=== PATIENT | female | born 1970 | race Caucasian/White ===

== ENCOUNTER → 2016-05-20 | Outpatient (CLI) | payer BC | LOC: FIMAGING 12:37 | PROVIDERS: ATTEND Specialist | DX: N20.0 Calculus of kidney (principal) ==

== ENCOUNTER → 2016-06-06 | Outpatient (CLI) | payer BC | LOC: FIMAGING 10:19 | PROVIDERS: ATTEND Physician Assistant Medical | DX: N20.0 Calculus of kidney (principal) ==

== ENCOUNTER → 2016-06-13 | Outpatient (CLI) | payer BC | LOC: CIMAGING 07:21 | DX: Z12.31 Encounter for screening mammogram for malignant neoplasm of breast (principal) | CPT/HCPCS: G0202 ==

== ENCOUNTER → 2016-10-24 | Outpatient (CLI) | payer BC | LOC: CIMAGING 14:19 | PROVIDERS: ATTEND Family Medicine | DX: M17.12 Unilateral primary osteoarthritis, left knee (principal); D64.9 Anemia, unspecified; E55.9 Vitamin D deficiency, unspecified; E88.81 Metabolic syndrome and other insulin resistance | CPT/HCPCS: 73564-PO ==

== ENCOUNTER → 2017-06-19 | Outpatient (CLI) | payer OTHER | LOC: CIMAGING 10:15 | PROVIDERS: ATTEND Family Medicine | DX: Z12.31 Encounter for screening mammogram for malignant neoplasm of breast (principal) ==

== ENCOUNTER → 2018-02-20 | Outpatient (CLI) | payer OTHER | LOC: FIMAGING 18:08 | PROVIDERS: ATTEND Orthopaedic Surgery | DX: Z01.818 Encounter for other preprocedural examination (principal); S66.117A Strain of flexor muscle, fascia and tendon of left little finger at wrist and hand level, initial encounter ==

== ENCOUNTER → 2018-06-25 | Outpatient (CLI) | payer OTHER | LOC: CIMAGING 07:23 | PROVIDERS: ATTEND Family Medicine | DX: Z12.31 Encounter for screening mammogram for malignant neoplasm of breast (principal) ==

== ENCOUNTER 2018-08-10 05:56 | Day surgery (SDC) | payer OTHER ==
[2018-08-10] MEDS ORDERED: ceFAZolin 2 GM/DEXTROSE 100 ML IV ONE (06:06)
[2018-08-10] MEDS ORDERED: LR 1,000 ML IV ONE (06:07)
--- NOTE | 2018-08-10 06:43 | PDGENHP ---
History and Physical History and Physical: Full dictated 47 yo F presented to her PCP Dr. Steele with R abdominal pain on 05/25. She also noticed bulging with cough on the R side for approx. one year, thought it may have to do with her tubal ligation surgery in April of last year. She now reports it is visible while standing and walking, she has not tried reducing it herself but it disappears upon lying down. The region is still uncomfortable, and she denies issues with urination or bowl movements. Nothing makes the pain better or worse MHx significant for female fertility problems and Vitamin D deficiency per PCP She is getting Cortisone shots for her SI joint in approx. 6 weeks and thinks she may need surgery for this if the injections do not work. They will call our office to schedule the hernia repair after her injection. PMH reviewed General: Pleasant, well-nourished and well-groomed woman HENT: Normocephalic, no gross hearing deficits, mucous membranes moist, pupils equal and round, no scleral icterus Lungs: Clear to auscultation bilaterally, No increased work of breathing Cardiac: Regular rate, no peripheral edema Abdomen: Bowel sounds present, soft and non tender, R ventral hernia can be felt while standing, scars are apparent, lateral incision was re- opened for her tubal ligation reversal last April. Skin: Warm and dry. MSK: Normal gait and normal nails Psych: Mood and affect normal Ventral hernia The pt understands the need for the surgical repair and will call the office to schedule. Risks and benefits including but not limited to stroke, heart attack, , blood clots infection, bleeding, recurrence damage to bowel were discussed
--- NOTE | 2018-08-10 06:56 | PDHPUP ---
History & Physical Update H&P update statement: This history and physical update is based on an assessment of the patient which was completed after admission or registration (within 24 hours), but prior to the surgery/procedure. H&P update: H&P reviewed & patient examined, no change in patient's condition since H&P completed
[2018-08-10] MEDS ORDERED: MIDAZOLAM 2 MG/2 ML VIAL IVP ONE (06:58)
--- NOTE | 2018-08-10 06:58 | PDANEPAE ---
ANE Past Medical History - Cardiovascular History Hx Hypertension: No Hx Arrhythmias: No Hx Chest Pain: No Hx Coronary Artery / Peripheral Vascular Disease: No Hx CHF / Valvular Disease: No Hx Palpitations: No - Pulmonary History Hx COPD: No Hx Asthma/Reactive Airway Disease: No Hx Recent Upper Respiratory Infection: No Hx Oxygen in Use at Home: No Hx Sleep Apnea: No Sleep Apnea Screening Result - Last Documented: Negative - Neurologic History Hx Cerebrovascular Accident: No Hx Seizures: No Hx Dementia: No - Endocrine History Hx Diabetes: No - Renal History Hx Renal Disorders: Yes Renal History Comment: hx of kidney stones with nephrolithiasis - Liver History Hx Hepatic Disorders: No - Neurological & Psychiatric Hx Hx Neurological and Psychiatric Disorders: No - Cancer History Hx Cancer: No - Congenital Disorder History Hx Congenital Disorders: No - GI History Hx Gastrointestinal Disorders: No Gastrointestinal History Comment: followed by [facility] for iron deficiency anemia. hx of constipation but better with dietary changes - Other Health History Other Health History: iron deficiency anemia. glasses - Chronic Pain History Chronic Pain: Yes (sI joint/ nervice pain) - Surgical History Prior Surgeries: bilateral knee scopes. olegario. tubal ligation. x3. reversal of tubal ligation. hysteroscopy. nephrolithiasis ANE Review of Systems Review of Systems: - Exercise capacity METS (RN): 4 METS ANE Patient History - Allergies Allergies/Adverse Reactions: No Known Allergies Allergy (Verified 08/09/18 16:36) - Home Medications Home Medications: Herbals/Supplements -Info Only 08/06/18 [Last Taken 08/09/18] - NPO status NPO Since - Liquids (Date): 08/09/18 NPO Since - Liquids (Time): 19:00 NPO Since - Solids (Date): 08/09/18 NPO Since - Solids (Time): 15:00 - Smoking Hx Smoking Status: Never smoked - Family Anes Hx Family Hx Anesthesia Complications: none ANE Labs/Vital Signs - Vital Signs Blood Pressure: 117/76 Heart Rate: 62 Respiratory Rate: 16 O2 Sat (%): 95 Height: 157.48 cm Weight: 73.028 kg ANE Physical Exam - Airway Neck exam: FROM Mallampati Score: Class 2 Mouth exam: normal dental/mouth exam - Pulmonary Pulmonary: clear to auscultation - Cardiovascular Cardiovascular: regular rate and rhythym - ASA Status ASA Status: I ANE Anesthesia Plan Anesthesia Plan: general endotracheal anesthesia
[2018-08-10] MEDS ORDERED: fentaNYL 100 MCG/2 ML INJ ONE ×3 (07:01→09:02)
[2018-08-10] MEDS ORDERED: PROPOFOL 200 MG/20 ML VIAL ONE (07:01)
[2018-08-10] MEDS ORDERED: ROCURONIUM 50 MG/5 ML VIAL ONE (07:05)
[2018-08-10] MEDS ORDERED: BUPIVACAINE 0.5% 30 ML SDV ONE (07:09)
--- NOTE | 2018-08-10 07:33 | GHP ---
[f rep st] HISTORY AND PHYSICAL DATE OF ADMISSION: 08/10/2018 CHIEF COMPLAINT: Ventral hernia. HISTORY OF PRESENT ILLNESS: The patient is a 47-year-old woman who has developed abdominal pain. Ysabel torres has had bulging with a cough on the right side for about 1 year. It is now visible when standing a nd walking. It is reducible. It is uncomfortable. Nothing makes the pain better or worse. PAST MEDICAL HISTORY: Pain SI joint, infertility. PAST SURGICAL HISTORY: Tubal ligation, section, cholecystectomy, hysteroscopy, reversal of tubal ligation. ALLERGIES: No known drug allergies. SOCIAL HISTORY: She is . She does not use tobacco. She has children. REVIEW OF SYSTEMS: 10-point review of systems negative. PHYSICAL EXAM: GENERAL: Pleasant, well-nourished, well-groomed woman. HEENT: Normocephalic. No gr oss hearing deficits. Mucous membranes moist. Pupils equal and round. No scleral icterus. LUNGS: Clear to auscultation bilaterally. No increased work of breathing. CARDIAC: Regular rate, no periph eral edema. ABDOMEN: Bowel sounds present. Soft, nontender. Ventral hernia on right side. SKIN: Warm and dry. MUSCULOSKELETAL: Normal female. PSYCH: Mood and affect normal. NEURO: Grossly intact . IMPRESSION AND PLAN: 47-year-old woman with ventral hernia. We will proceed with robotic repair. R isks and benefits, including but not limited to stroke, heart attack, , blood clots, infection, bleeding, damage to surrounding structures were discussed. She had her questions answered to her sat isfaction. /[id number]/MODL
[2018-08-10] MEDS ORDERED: DEXAMETHASONE 4 MG/ML VIAL ONE (07:34)
[2018-08-10] MEDS ORDERED: PHENYLEPHRINE HCL 100 MCG/ML SYR ONE (07:39)
[2018-08-10] MEDS ORDERED: KETOROLAC 30 MG/1 ML SDV ONE (07:44)
[2018-08-10] MEDS ORDERED: LIDOCAINE HCL 160 MG/4 ML LTA KIT TP ONE (08:32)
[2018-08-10] MEDS ORDERED: ONDANSETRON 4 MG/2 ML VIAL ONE (08:34)
[2018-08-10] MEDS ORDERED: METOCLOPRAMIDE 10 MG/2 ML VIAL IVP PRN (08:37)
[2018-08-10] MEDS ORDERED: ACETAMINOPHEN 500 MG TAB PO PRN (08:37)
[2018-08-10] MEDS ORDERED: ALBUTEROL 3 ML DEYVIAL IH PRN (08:37)
[2018-08-10] MEDS ORDERED: oxyCODONE IR 5 MG TAB PO PRN (08:37)
[2018-08-10] MEDS ORDERED: HYDROCODONE/APAP 5/325 TAB PO PRN (08:37)
[2018-08-10] MEDS ORDERED: MEPERIDINE 25 MG/0.5 ML AMP IVP PRN (08:37)
[2018-08-10] MEDS ORDERED: PROMETHAZINE HCL 25 MG/ML INJ IVP PRN (08:37)
[2018-08-10] MEDS ORDERED: NALOXONE HCL 0.4 MG/ML INJ IVP PRN (08:37)
[2018-08-10] MEDS ORDERED: ONDANSETRON 4 MG/2 ML VIAL IVP PRN (08:37)
[2018-08-10] MEDS ORDERED: LR 500 ML IV PRN (08:37)
[2018-08-10] MEDS ORDERED: DEXAMETHASONE 4 MG/ML VIAL IVP PRN (08:37)
[2018-08-10] MEDS ORDERED: GLYCOPYRROLATE 0.2 MG/1 ML VIAL ONE (08:43)
[2018-08-10] MEDS ORDERED: NEOSTIGMINE METHYLSULFATE 10 MG/10 ML MDV ONE (08:43)
--- NOTE | 2018-08-10 08:58 | POSTOPPROG ---
Post Op Note Date of Operation: 08/10/18 Surgeon: Jennifer Draper Store Receiving Specialist: yonis Anesthesiologist: clarence Anesthesia: GET(General Endotracheal) Pre-op Diagnosis: RLQ ventral hernia Post-op Diagnosis: same Indication: 47yo F with symptomatic RLQ ventral hernia Procedure: da noel hernia repair with mesh Findings: 6cm RLQ hernia at later scar Inf/Abcess present in the surg proc area at time of surgery?: No EBL: Minimal Complications: none immediately postop Bowel Protocol: N/A Clean Closure Performed: N/A Specimen(s): none
[2018-08-10] MEDS: fentaNYL 100 MCG/2 ML INJ IVP PRN ×2 (09:04→09:10)
[2018-08-10] MEDS ORDERED: HYDROmorphONE/DILAUDID 1 MG/ML INJ ONE (09:18)
[2018-08-10] MEDS: HYDROmorphONE/DILAUDID 1 MG/ML INJ IVP PRN ×2 (09:19→09:30)
[2018-08-10] MEDS ORDERED: HYDROCODONE/APAP 5/325 TAB ONE (09:53)
[2018-08-10] MEDS ORDERED: oxyCODONE IR 5 MG TAB ONE (10:29)
[2018-08-10 10:38] VITALS: BP 110/87
--- NOTE | 2018-08-10 13:09 | GOP ---
[f rep st] OPERATIVE REPORT DATE OF OPERATION: 08/10/2018 SURGEON: Jennifer Draper MD POST PRODUCTION ASSISTANT: CHICHI Fierro. ANESTHESIA: General. ANESTHESIOLOGIST: Irma Galeano MD. PREOPERATIVE DIAGNOSIS: Right lower quadrant ventral hernia. POSTOPERATIVE DIAGNOSIS: Right lower quadrant ventral hernia. PROCEDURE PERFORMED: Da Gil hernia repair with mesh. FINDINGS: 6 cm right lower quadrant lateral to cesarian scar. SPECIMENS: None. ESTIMATED BLOOD LOSS: Minimal. INDICATIONS: The patient is a 47-year-old woman who has had a bulge in her right lower quadrant. It was becoming increasingly bothersome. DESCRIPTION OF PROCEDURE: Patient was brought into the operating room, placed supine on the table, and general anesthesia was administered. Her abdomen was prepped and draped in the usual sterile fashion. Infiltrated all sites with 0.5 % Marcaine prior to making incisions. Made an incision above her umbilicus. I elevated it. I inserted the Veress needle. It passed the hanging drop test. Her abdomen insufflated easily to a pressure of 15 mmHg. I inserted the trocar with a camera at the site. No injuries from Veress needle placement. Under direct vision, I placed two additional 8 mm trocars. I brought in the robot and docked the camera. Targeting was completed. I then introduced fenestrated bipolar and monopolar scissors under direct vision. I moved to the console. I cleared a space on the peritoneum. I reduced the hernia sac completely. I reapproximated the 6 cm defect with 0 180 V-Loc suture. I then placed a piece of ProGrip mesh which had 3 cm overlapping in every direction. I sutured this into place with 3-0 Vicryl. I then closed the peritoneum with 3-0 V-Loc 90. Abdomen was inspected. No injuries noted. Ports were removed under direct vision. Abdomen allowed to desufflate. Skin closed with 4-0 Monocryl. Dermabond applied. She was awakened in the operating room, extubated, transferred to PACU in stable condition. /[id number]/MODL MTDD
== END 2018-08-10 11:07 | disposition home or self-care (01) ==
LOC: FSGY 05:56
PROVIDERS: ATTEND Surgery
DX: K43.9 Ventral hernia without obstruction or gangrene (principal); M53.3 Sacrococcygeal disorders, not elsewhere classified
CPT/HCPCS: C1781; J0690; J1100; J1170; J1885; J2250; J2370; J2405; J2704; J3010